=== PATIENT | female | born 1955 | race Hispanic/Latino ===

== ENCOUNTER → 2018-11-05 | Outpatient (CLI) | payer BC | LOC: LAB.O 13:32 | DX: E07.9 Disorder of thyroid, unspecified (principal); D69.3 Immune thrombocytopenic purpura; R73.9 Hyperglycemia, unspecified; I10 Essential (primary) hypertension ==

== ENCOUNTER 2018-11-24 23:31 | Emergency (ER) | payer BC ==
[2018-11-24] MEDS ORDERED: ASPIRIN (CHEWABLE) 81 MG TAB PO ONE (23:43)
[2018-11-24] MEDS ORDERED: NITROGLYCERIN/D5W IV 50,000 MCG in PREMIX BOTTLE 1 BOTTLE IVS SCH (23:45)
--- NOTE | 2018-11-25 | ED.PDOC ---
History of Present Illness - General Chief Complaint: Cardiovascular Problem Stated Complaint: chest pain Time Seen by Provider: 11/24/18 23:41 Source: patient, family Exam Limitations: no limitations - History of Present Illness Initial Comments: Patient presents with chest pain for four hours. Is stabbing in nature, starts in the back and radiates to the right chest, constant but intermittent in intensity, had a previous episode 2 months ago that she says was an AMI but it wasn't stented because her "ITP" was exacerbated at the time. No associated symptoms. She has ITP, HTN, CRF, and stopped smoking cigarettes two months ago. No other complaints. Timing/Duration: 4-6 hours Severity: severe Improving Factors: nothing Worsening Factors: nothing Associated Symptoms: denies symptoms Allergies/Adverse Reactions: Allergies Flu Virus Vaccine Adverse Reaction (Verified 11/25/18 00:47) Review of Systems - Review of Systems Constitutional: States: no symptoms reported EENTM: States: no symptoms reported Respiratory: States: no symptoms reported Cardiology: States: see HPI Gastrointestinal/Abdominal: States: no symptoms reported Genitourinary: States: no symptoms reported Musculoskeletal: States: no symptoms reported Skin: States: no symptoms reported Neurological: States: no symptoms reported Endocrine: States: no symptoms reported Hematologic/Lymphatic: States: no symptoms reported Physical Exam - Physical Exam General Appearance: Anxious, Obvious distress Eye Exam: bilateral normal Ears, Nose, Throat: normal ENT inspection Neck: non-tender, full range of motion, supple Respiratory: lungs clear, normal breath sounds Cardiovascular/Chest: normal peripheral pulses, regular rate, rhythm, no edema Gastrointestinal/Abdominal: normal bowel sounds, non tender, soft Back Exam: normal inspection, no CVA tenderness Extremity: normal range of motion, non-tender, normal inspection Neurologic: no motor/sensory deficits, alert, normal mood/affect, oriented x 3 Skin Exam: normal color Lymphatic: no adenopathy Progress - Progress Progress: 11/25/18 00:50 EKG read by me showed sinus tachycardia with inverted T waves in the lateral l bj. Troponin 0.12. Patient given ASA 324 mg po upon arrival. SBP > 225. Patient was started on a nitroglycerin drip to titrate the SBP to 140-150, which is her baseline. Patient given a heparin bolus of 5000 IU and then a drip of 1200 IU/hr. Plavix 225 mg po x one ( she had 75 mg this morning.) Atorvastatin 80 mg po x one. Patient transferred by helicopter to [facility] in [place], Duane Ferrell 11/25/18 01:58 Departure - Departure Clinical Impression: Acute myocardial infarction Disposition: Transfer to Hospital Condition: Serious Departure Forms: ED Discharge - Pt. Copy, Patient Portal Self Enrollment Instructions: DI for Chest Pain Diet: other - NPO Activity: other - as per hospitalist
--- NOTE | 2018-11-25 00:06 | RAD ---
EXAM DESCRIPTION: Chest,1 View CLINICAL HISTORY: 63 years Female, chest pain COMPARISON: None. FINDINGS: No localized consolidation. No pneumothorax. No significant pleural effusion. Interstitial septal thickening is present. Cardiac silhouette appears mildly enlarged. Osseous structures are unremarkable. IMPRESSION: Findings suggestive of pulmonary edema which may be related to congestive heart failure. Electronically signed by: Keith Bolivar MD 11/25/2018 12:04 AM [facility]
[2018-11-25] MEDS ORDERED: NITROGLYCERIN/D5W IV 250 ML IVS ONE (00:23)
[2018-11-25] MEDS ORDERED: HEPARIN SODIUM (PORCINE) 5,000 U/ML VIAL IV ONE (00:45)
[2018-11-25] MEDS ORDERED: CLOPIDOGREL 75 MG TAB PO ONE (00:47)
[2018-11-25] MEDS ORDERED: ATORVASTATIN 20 MG TAB PO ONE (00:48)
[2018-11-25] MEDS ORDERED: HEPARIN PREMIX 25,000 UNITS in PREMIX BAG 1 BAG IVS SCH (01:00)
[2018-11-25] MEDS ORDERED: HEPARIN PREMIX 500 ML ONE (01:00)
[2018-11-25] MEDS ORDERED: SODIUM CHLORIDE 0.9% 1000ML 1,000 ML IVS ONE (01:12)
[2018-11-25] MEDS ORDERED: SODIUM CHLORIDE 0.9% 1000ML 1,000 ML ONE (01:12)
[2018-11-25 02:32] VITALS: O2SAT 100
[2018-11-25 02:43] VITALS: BP 139/72
[2018-11-25 03:31] VITALS: TEMP 98.2
== END 2018-11-25 03:00 | disposition short-term general hospital (02) ==
LOC: ER 23:31
DX: I21.9 Acute myocardial infarction, unspecified (principal); I25.2 Old myocardial infarction; R00.0 Tachycardia, unspecified; I12.9 Hypertensive chronic kidney disease with stage 1 through stage 4 chronic kidney disease, or unspecified chronic kidney disease; N18.9 Chronic kidney disease, unspecified; Z87.891 Personal history of nicotine dependence; Z88.7 Allergy status to serum and vaccine
CPT/HCPCS: 71045; 80053; 82550; 82553; 83880; 84484; 85025; 85610; 85730; 93005; J1644; J7030

== ENCOUNTER → 2019-01-08 | Outpatient (CLI) | payer BC | LOC: LAB.O 16:15 | PROVIDERS: ATTEND Internal Medicine Medical Oncology | DX: D69.3 Immune thrombocytopenic purpura (principal) ==

== ENCOUNTER → 2019-01-30 | Outpatient (CLI) | payer BC | LOC: LAB.O 12:55 | PROVIDERS: ATTEND Internal Medicine Medical Oncology | DX: D69.3 Immune thrombocytopenic purpura (principal) ==

== ENCOUNTER → 2019-02-05 | Outpatient (CLI) | payer BC | LOC: LAB.O 12:51 | PROVIDERS: ATTEND Internal Medicine Medical Oncology | DX: D69.3 Immune thrombocytopenic purpura (principal) ==

== ENCOUNTER → 2019-02-13 | Outpatient (CLI) | payer BC | LOC: LAB.O 08:51 | PROVIDERS: ATTEND Internal Medicine Medical Oncology | DX: D69.3 Immune thrombocytopenic purpura (principal) ==

== ENCOUNTER → 2019-03-06 | Outpatient (CLI) | payer BC | LOC: LAB.O 13:08 | PROVIDERS: ATTEND Internal Medicine Medical Oncology | DX: D69.6 Thrombocytopenia, unspecified (principal) ==

== ENCOUNTER → 2019-03-16 | Outpatient (CLI) | payer BC | LOC: LAB.O 14:08 | PROVIDERS: ATTEND Internal Medicine Medical Oncology | DX: D69.6 Thrombocytopenia, unspecified (principal) ==

== ENCOUNTER → 2019-04-03 | Outpatient (CLI) | payer BC | LOC: LAB.O 13:20 | PROVIDERS: ATTEND Internal Medicine Medical Oncology | DX: D69.6 Thrombocytopenia, unspecified (principal) ==

== ENCOUNTER → 2019-05-08 | Outpatient (CLI) | payer BC | LOC: LAB.O 13:06 | PROVIDERS: ATTEND Internal Medicine Medical Oncology | DX: D69.3 Immune thrombocytopenic purpura (principal) ==

== ENCOUNTER → 2019-06-19 | Outpatient (CLI) | payer BC | LOC: LAB.O 10:43 | PROVIDERS: ATTEND Internal Medicine Medical Oncology | DX: D69.6 Thrombocytopenia, unspecified (principal) ==

== ENCOUNTER → 2019-07-03 | Outpatient (CLI) | payer BC | LOC: LAB.O 12:17 | PROVIDERS: ATTEND Internal Medicine Medical Oncology | DX: D69.6 Thrombocytopenia, unspecified (principal) ==

== ENCOUNTER → 2019-07-17 | Outpatient (CLI) | payer BC | LOC: LAB.O 09:53 | PROVIDERS: ATTEND Internal Medicine Medical Oncology | DX: D69.6 Thrombocytopenia, unspecified (principal) ==

== ENCOUNTER → 2019-08-14 | Outpatient (CLI) | payer BC | LOC: LAB.O 09:24 | PROVIDERS: ATTEND Internal Medicine Medical Oncology | DX: D69.6 Thrombocytopenia, unspecified (principal) ==

== ENCOUNTER → 2019-08-28 | Outpatient (CLI) | payer BC | LOC: LAB.O 10:11 | PROVIDERS: ATTEND Internal Medicine Medical Oncology | DX: D69.6 Thrombocytopenia, unspecified (principal) ==

== ENCOUNTER → 2019-09-11 | Outpatient (CLI) | payer BC | LOC: LAB.O 10:26 | PROVIDERS: ATTEND Internal Medicine Medical Oncology | DX: D69.6 Thrombocytopenia, unspecified (principal) ==

== ENCOUNTER → 2019-10-09 | Outpatient (CLI) | payer BC | LOC: LAB.O 10:22 | PROVIDERS: ATTEND Internal Medicine Medical Oncology | DX: D69.3 Immune thrombocytopenic purpura (principal) ==

== ENCOUNTER → 2019-10-23 | Outpatient (CLI) | payer BC | LOC: LAB.O 10:12 | PROVIDERS: ATTEND Internal Medicine Medical Oncology | DX: D69.3 Immune thrombocytopenic purpura (principal) ==

== ENCOUNTER → 2019-11-06 | Outpatient (CLI) | payer BC | LOC: LAB.O 09:41 | PROVIDERS: ATTEND Internal Medicine Medical Oncology | DX: D69.3 Immune thrombocytopenic purpura (principal) ==

== ENCOUNTER → 2019-11-20 | Outpatient (CLI) | payer BC | LOC: LAB.O 10:02 | PROVIDERS: ATTEND Internal Medicine Medical Oncology | DX: D69.3 Immune thrombocytopenic purpura (principal) ==

== ENCOUNTER → 2019-12-04 | Outpatient (CLI) | payer BC | LOC: LAB.O 09:58 | PROVIDERS: ATTEND Internal Medicine Medical Oncology | DX: D69.3 Immune thrombocytopenic purpura (principal) ==

== ENCOUNTER → 2019-12-16 | Outpatient (CLI) | payer BC | LOC: LAB.O 09:16 | PROVIDERS: ATTEND Internal Medicine Medical Oncology | DX: D69.3 Immune thrombocytopenic purpura (principal) ==

== ENCOUNTER → 2020-03-25 | Outpatient (CLI) | payer BC | LOC: LAB.O 09:41 | PROVIDERS: ATTEND Internal Medicine Medical Oncology | DX: D69.6 Thrombocytopenia, unspecified (principal) ==